=== PATIENT | female | born 1945 | race Caucasian/White ===

== ENCOUNTER 2019-06-18 08:25 | Day surgery (SDC) | payer MEDICARE, OTHER ==
[2019-06-18] MEDS ORDERED: PROPOFOL 200 MG/20 ML VIAL IV ONE ×2 (08:48)
[2019-06-18] MEDS ORDERED: LACTATED RINGERS 1,000 ML IV.SOLN IV ONE ×2 (08:48)
[2019-06-18] MEDS ORDERED: LIDOCAINE HCL 2% PF 100MG/5ML VIAL IJ ONE ×2 (08:48)
--- NOTE | 2019-06-20 13:40 | GI Report ---
DATE OF PROCEDURE: 06/18/2019 REFERRING PHYSICIAN: Deandra Hernández D.O. PROCEDURE PERFORMED: Colonoscopy and polypectomy. SURGEON: Zoila Duque M.D., Mario Alberto INDICATION FOR PROCEDURE: 74-year-old woman. Her mother had colon cancer. The patient did have some benign polyps over 5 years ago. She denies any interval change in stools. PROCEDURE MEDICATION: Propofol, as per Anesthesia. DESCRIPTION OF PROCEDURE: The video pediatric colonoscope was advanced through the rectum. In the sigmoid some redundancy. The colonoscope was slowly advanced all the way to the cecum. The appendiceal orifice and terminal ileum were normal. On slow withdrawal, the cecum, ascending colon, transverse colon no obvious intraluminal lesions were noted. In the descending colon and sigmoid some redundancy in the sigmoid at about 20 cm. There was a 2-3 mm flat hyperplastic-appearing polyp removed with cold snare. The remaining sigmoid and rectum were normal. The patient tolerated the procedure well. FINDINGS: Small flat hyperplastic-appearing polyp removed with cold snare. RECOMMENDATIONS: 1. Increase fiber in the diet. 2. With her family history (mother) would consider looking at her colon because of high risk family history, not by the pathology of the polyp. ZOILA DUQUE M.D., Mario Alberto [place] Job#: [id number] Cc: Deandra Hernández D.O. MTDYesenia
== END 2019-06-18 11:00 | disposition home or self-care (01) ==
LOC: OPSURG 08:25
PROVIDERS: ATTEND Internal Medicine Gastroenterology
DX: Z12.11 Encounter for screening for malignant neoplasm of colon (principal); Z80.0 Family history of malignant neoplasm of digestive organs; D12.5 Benign neoplasm of sigmoid colon
CPT/HCPCS: 45385; 88305; J2001; J2704; J7120